=== PATIENT | female | born 1980 | race Caucasian/White ===

== ENCOUNTER 2017-07-12 13:16 | Emergency (ER) | payer OTHER ==
[~2017-07-12] VITALS: Ht 165.1 cm; Wt 82.0 kg
[2017-07-12 13:24] VITALS: BP 135/88; PULSE 94; RESP 19; TEMP 98.9; O2SAT 100
[2017-07-12] MEDS ORDERED: INSULIN (13:36)
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
[2017-07-12] MEDS ORDERED: TYLE325T PO (15:57)
[2017-07-12] MEDS ORDERED: CYCL1TAB29 PO (17:04)
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
== END 2017-07-12 17:16 | disposition home or self-care (01) ==
LOC: EDBD → NEPC 13:16 → HOBED 17:16
DX: O9A.212 Injury, poisoning and certain other consequences of external causes complicating pregnancy, second trimester (principal); S16.1XXA Strain of muscle, fascia and tendon at neck level, initial encounter; S00.03XA Contusion of scalp, initial encounter; V49.9XXA Car occupant (driver) (passenger) injured in unspecified traffic accident, initial encounter; Z3A.17 17 weeks gestation of pregnancy
CPT/HCPCS: 70450; 72125

== ENCOUNTER 2017-07-12 17:43 | Observation (INO) | payer OTHER ==
[~2017-07-12] VITALS: Ht 162.6 cm; Wt 82.0 kg
[~2017-07-12 17:43] MED LIST: CYCL1TAB29 PO; INSULIN; TYLE325T PO
[2017-07-12 17:45] VITALS: BP 133/85; PULSE 88; RESP 18; TEMP 97.8; O2SAT 100
[2017-07-12] MEDS ORDERED: SODIUM CHLOR 0.9% 1000 ML INJ 1,000 ML IV ONE (17:46)
[2017-07-12 17:50] VITALS: RESP 18; O2SAT 99
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
[2017-07-12] MEDS ORDERED: SODIUM CHLORIDE 0.9% FLUSH 10 ML FLUSH IVF PRN (18:00)
--- NOTE | 2017-07-12 18:17 | RADRPT ---
EXAM DATE/TIME: 07/12/2017 17:42 [facility] COMPARISON: No previous studies available for comparison. INDICATIONS : Short of breath, chest pain. MEDICAL HISTORY : None. SURGICAL HISTORY : None. ENCOUNTER: Initial ACUITY: 1 day PAIN SCORE: 1/10 LOCATION: Bilateral chest FINDINGS: Single AP view of the chest. The lungs are clear. Cardiomediastinal silhouette within normal limits. No evidence of pleural effusion or pneumothorax. CONCLUSION: No acute cardiopulmonary disease identified. Yomi Gutierrez MD on July 12, 2017 at 18:15 Board Certified Radiologist. This report was verified electronically.
[2017-07-12 18:29] LABS: AUTOMATED NEUTROPHIL # 12.8 TH/MM3 (1.8-7.7); BASOPHIL % 0.1 % (0.0-2.0); EOSINOPHIL % 0.2 % (0.0-4.0); HEMATOCRIT 38.9 % (35.0-46.0); HEMO FLAGS DIFF FINAL; LYMPH % 18.5 % (9.0-44.0); LYMPHOCYTE # 3.1 TH/MM3 (1.0-4.8); MEAN CELL VOLUME 77.8 FL (80.0-100.0); MEAN CORPUSCULAR HEMOGLOBIN 27.2 PG (27.0-34.0); MEAN CORPUSCULAR HGB CONC 34.9 % (32.0-36.0); MONO % 3.8 % (0.0-8.0); NEUT % 77.4 % (16.0-70.0); PLATELET COUNT 328 TH/MM3 (150-450); RED BLOOD COUNT 4.99 MIL/MM3 (4.00-5.30); WHITE BLOOD COUNT 16.6 TH/MM3 (4.0-11.0)
[2017-07-12 18:43] VITALS: BP 121/73; PULSE 85; RESP 16; O2SAT 100
[2017-07-12 19:00] LABS: ANION GAP 10 MEQ/L (5-15); AST (GOT) 11 U/L (15-37); BICARBONATE 23.2 MEQ/L (21.0-32.0); BLOOD UREA NITROGEN 6 MG/DL (7-18); CHLORIDE 103 MEQ/L (98-107); GLOMERULAR FILTRATION RATE 152 ML/MIN (>89); SODIUM (NA) 136 MEQ/L (136-145)
[2017-07-12 19:05] LABS: ALKALINE PHOSPHATASE 50 U/L (45-117); ALT (GPT) 14 U/L (10-53); TOTAL BILIRUBIN ADULT 0.6 MG/DL (0.2-1.0)
[2017-07-12] MEDS ORDERED: POTASSIUM CHLORIDE 20 MEQ CONTROLLED RELEASE TAB PO ONE (19:15)
[2017-07-12 19:22] LABS: BACTERIA, URINE MANY /hpf; BLOOD, URINE NEG (NEG); COMMENT (UR) CULTURE INDICATED; CULTURE IF INDICATED CULTURE INDICATED; GLUCOSE,URINE 150 mg/dL (NEG); KETONE, URINE 40 mg/dL (NEG); MUCUS URINE FEW /lpf (OCC); NITRITE,URINE NEG (NEG); SQUAMOUS EPITHELIAL CELL URINE 21 /hpf (0-5); URINE COLOR YELLOW (YELLW/STRAW)
[2017-07-12] MEDS ORDERED: NITROFURANTOIN MONOHYD MACROCR 100 MG CAP PO ONE (19:45)
[2017-07-12] MEDS ORDERED: SODIUM CHLORIDE 0.9% FLUSH 10 ML FLUSH IV FLUSH PRN (21:15)
[2017-07-12] MEDS ORDERED: Post-op Orders (for Pharmacy) MISC XX ONE (21:15)
[2017-07-12] MEDS ORDERED: ONDANSETRON HCL 4 MG/2 ML VIAL IV PRN (21:15)
[2017-07-12] MEDS ORDERED: NALOXONE HCL 0.4 MG/ML AMP IV PRN (21:15)
[2017-07-12] MEDS ORDERED: oxyCODONE/ACETAMINOPHEN 5 MG/325 MG TAB PO PRN (21:15)
[2017-07-12] MEDS: SODIUM CHLOR 0.9% 1000 ML INJ 1,000 ML IV SCH (22:00)
[2017-07-12 22:50] VITALS: BP 113/67; PULSE 88; RESP 18; TEMP 98.3; O2SAT 98
[2017-07-13 08:02] VITALS: BP 98/60; PULSE 85; RESP 16; TEMP 98.2; O2SAT 99
[2017-07-13] MEDS: SODIUM CHLORIDE 0.9% FLUSH 10 ML FLUSH IV FLUSH SCH ×2 (08:59→20:48)
[2017-07-13 11:16] VITALS: BP 109/70; PULSE 90; RESP 18; TEMP 98.6; O2SAT 99
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
[2017-07-13] MEDS ORDERED: oxyCODONE/ACETAMINOPHEN 5 MG/325 MG TAB PO PRN (12:30)
[2017-07-13] MEDS: oxyCODONE/ACETAMINOPHEN 5 MG/325 MG TAB PO PRN (12:48)
[2017-07-13 12:54] LABS: AUTOMATED NEUTROPHIL # 8.2 TH/MM3 (1.8-7.7); BASOPHIL % 0.3 % (0.0-2.0); EOSINOPHIL % 0.3 % (0.0-4.0); HEMO FLAGS DIFF FINAL; LYMPH % 17.2 % (9.0-44.0); LYMPHOCYTE # 1.8 TH/MM3 (1.0-4.8); MEAN CELL VOLUME 78.4 FL (80.0-100.0); MEAN CORPUSCULAR HEMOGLOBIN 27.2 PG (27.0-34.0); MEAN CORPUSCULAR HGB CONC 34.7 % (32.0-36.0); MONO % 4.7 % (0.0-8.0); NEUT % 77.5 % (16.0-70.0); PLATELET COUNT 291 TH/MM3 (150-450); RED BLOOD COUNT 4.47 MIL/MM3 (4.00-5.30); RED CELL DISTRIBUTION WIDTH 14.1 % (11.6-17.2); WHITE BLOOD COUNT 10.6 TH/MM3 (4.0-11.0)
[2017-07-13] MEDS: SODIUM CHLOR 0.9% 1000 ML INJ 1,000 ML IV SCH (13:41)
[2017-07-13 15:47] VITALS: BP 100/61; PULSE 82; RESP 16; TEMP 98.2; O2SAT 97
--- NOTE | 2017-07-13 16:23 | EKG ---
Date Performed: 07/12/2017 Time Performed: 17:52:42 PTAGE: 36 years EKG: Sinus rhythm NORMAL ECG NO PREVIOUS TRACING DOCTOR: Ravin Roland Interpretating Date/Time 07/13/2017 16:20:49
[2017-07-13 19:40] VITALS: BP 110/61; PULSE 89; RESP 18; TEMP 98.6; O2SAT 100
[2017-07-13] MEDS: DOCUSATE SODIUM 100 MG CAP PO SCH (20:48)
[2017-07-13 23:43] VITALS: BP 100/59; PULSE 82; RESP 18; TEMP 97.9; O2SAT 98
[2017-07-14 04:15] VITALS: BP 109/61; PULSE 86; RESP 18; TEMP 97.9; O2SAT 99
[2017-07-14] MEDS: SODIUM CHLOR 0.9% 1000 ML INJ 1,000 ML IV SCH (06:03)
[2017-07-14 07:50] VITALS: BP 110/62; PULSE 92; RESP 18; TEMP 98.2; O2SAT 100
[2017-07-14] MEDS ORDERED: NITR100C4 PO (08:04)
[2017-07-14] MEDS ORDERED: DOCU1CAP39 PO (08:04)
[2017-07-14] MEDS: SODIUM CHLORIDE 0.9% FLUSH 10 ML FLUSH IV FLUSH SCH (08:41)
[2017-07-14] MEDS: DOCUSATE SODIUM 100 MG CAP PO SCH (08:43)
[2017-07-14] MEDS: oxyCODONE/ACETAMINOPHEN 5 MG/325 MG TAB PO PRN (08:55)
[2017-07-14] MEDS ORDERED: LIDOCAINE HCL 5% PATCH T-DERMAL SCH (09:00)
[2017-07-14] MEDS ORDERED: NITROFURANTOIN MONOHYD MACROCR 100 MG CAP PO SCH (09:00)
[2017-07-14 11:42] VITALS: BP 111/66; PULSE 90; RESP 18; TEMP 98.5; O2SAT 100
[2017-07-14] MEDS ORDERED: OXYC1TAB63 PO (12:04)
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
[2017-07-14] MEDS ORDERED: REMOVE OLD LIDOCAINE PATCH T-DERMAL SCH (21:00)
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
== END 2017-07-14 13:32 | disposition home or self-care (01) ==
LOC: NEPC 17:43 → NEDA 19:35 → NEPFCDU 22:09
PROVIDERS: ADMIT Surgery; ATTEND Surgery
DX: O9A.212 Injury, poisoning and certain other consequences of external causes complicating pregnancy, second trimester (principal); S00.03XA Contusion of scalp, initial encounter; S16.1XXA Strain of muscle, fascia and tendon at neck level, initial encounter; G90.01 Carotid sinus syncope; R82.79 Other abnormal findings on microbiological examination of urine; Z3A.17 17 weeks gestation of pregnancy; Y92.481 Parking lot as the place of occurrence of the external cause
CPT/HCPCS: 71010; 80053; 81001; 85025; 87086; 93005; 94150; 96360; 96361; 97161; 99285; G0378; G8987; G8988; J7030